=== PATIENT | female | born 1965 | race Caucasian/White ===

== ENCOUNTER 2018-06-30 05:40 | Day surgery (SDC) | payer OTHER ==
[~2018-06-30] VITALS: Ht 157.5 cm; Wt 520.7 kg
[~2018-06-30 05:40] MED LIST: FOLIC ACID0.4 MG PO; PAXIL PO; PROBIOTIC1 EAC2 PO
[2018-06-30] MEDS ORDERED: PERCOCET 5-3251 EACH PO (08:40)
[2018-06-30] MEDS ORDERED: RECTICARE30 GM TOP (08:40)
[2018-06-30] MEDS ORDERED: NEURONTIN300 MG PO (08:40)
== END 2018-06-30 16:00 | disposition home or self-care (01) ==
LOC: CIR.AMB 05:40
DX: K60.1 Chronic anal fissure (principal)